=== PATIENT | male | born 1970 | race Caucasian/White ===

== ENCOUNTER → 2017-09-09 | Outpatient (CLI) | payer OTHER ==
[~2017-09-09] MED LIST: IBUP200C8 PO; TRAM50TA2 PO
[2017-09-09 09:47] LABS: BASOPHILS # (AUTO) 0.05 x10^3/uL (0-0.1); BASOPHILS % (AUTO) 1 % (0-1); EOSINOPHILS # (AUTO) 0.29 x10^3/uL (0-0.4); EOSINOPHILS % (AUTO) 5 % (1-7); LYMPHOCYTES % (AUTO) 35 % (22-44); MD NO; MEAN CORPUSCULAR HEMOGLOBIN 29.9 pg (27.5-34.5); MEAN CORPUSCULAR HGB CONC 33.8 g/dL (33.2-36.2); MEAN CORPUSCULAR VOLUME 88.3 fL (81-97); MEAN PLATELET VOLUME 7.4 fL (7.4-10.4); MONOCYTES # (AUTO) 0.64 x10^3/uL (0.2-0.8); MONOCYTES % (AUTO) 11 % (2-9); NEUTROPHILS # (AUTO) 2.97 x10^3/uL (1.8-6.8); NEUTROPHILS % (AUTO) 49 % (42-75); PLATELET COUNT 240 x10^3/uL (130-400); RED BLOOD COUNT 5.23 x10^6/uL (4.38-5.82); RED CELL DISTRIBUTION WIDTH 13.5 % (9.4-14.8)
[2017-09-09 09:58] LABS: ALBUMIN 3.6 g/dL (3.4-5.0); ANION GAP 6 mmol/L (5-15); CALCIUM 8.6 mg/dL (8.5-10.1); CHLORIDE 111 mmol/L (98-107)
[2017-09-09 10:01] LABS: ALANINE AMINOTRANSFERASE 38 U/L (12-78); ALKALINE PHOSPHATASE 60 U/L (45-117); BILIRUBIN,TOTAL 0.4 mg/dL (0.2-1.0); CREATININE 0.96 mg/dL (0.7-1.3); TOTAL PROTEIN 7.3 g/dL (6.4-8.2)
== END | disposition home or self-care (01) ==
LOC: STAR 08:35
PROVIDERS: ATTEND Colon & Rectal Surgery
DX: Z01.818 Encounter for other preprocedural examination (principal)
CPT/HCPCS: 36415; 80053; 85025; 93005

== ENCOUNTER 2017-09-15 08:07 | Inpatient (IN) | payer OTHER ==
[~2017-09-15] VITALS: Ht 188 cm; Wt 116.3 kg
[~2017-09-15 08:07] MED LIST changes: +BUPIVACAINE/PF-EPI 0.5% 1:200K ONE; +INDOCYANINE GREEN 25 MG VIAL ONE
[2017-09-15] MEDS ORDERED: LACTATED RINGERS 1,000 ML IV SCH ×2 (08:22→14:30)
[2017-09-15] MEDS ORDERED: ACETAMINOPHEN 500 MG TABLET PO ONE (08:30)
[2017-09-15] MEDS ORDERED: ONDANSETRON 2MG/ML, 2ML IVPush ONE (08:30)
[2017-09-15] MEDS ORDERED: SCOPOLAMINE PATCH, 1.5MG PATCH.TD72 TD ONE (08:30)
[2017-09-15] MEDS ORDERED: GABAPENTIN 300 MG CAPSULE PO ONE (08:30)
[2017-09-15] MEDS ORDERED: FAMOTIDINE 20 MG TABLET PO ONE (08:30)
[2017-09-15] MEDS ORDERED: FENTANYL PF 100 MCG/2ML ONE ×3 (08:32→12:00)
[2017-09-15] MEDS ORDERED: MIDAZOLAM 1 MG/ML, 2ML ONE (08:32)
[2017-09-15 08:36] VITALS: BP 124/86
[2017-09-15] MEDS ORDERED: METR500T8 PO (08:41)
[2017-09-15] MEDS ORDERED: NEOM500T PO (08:41)
[2017-09-15] MEDS ORDERED: BUPIVACAINE/PF-EPI 0.5% 1:200K INFIL ONE (10:05)
[2017-09-15] MEDS ORDERED: ONDANSETRON 2MG/ML, 2ML IV PRN ×2 (11:00→14:30)
[2017-09-15] MEDS ORDERED: HYDROcodone/APAP 7.5-325MG/15ML UDC PO PRN (11:00)
[2017-09-15] MEDS ORDERED: OXYcodone 5 MG/5 ML ORAL.SOL UDC PO PRN (11:00)
[2017-09-15] MEDS ORDERED: MEPERIDINE/PF 25MG/0.5ML IVPush PRN (11:00)
[2017-09-15] MEDS ORDERED: MIDAZOLAM 1 MG/ML, 2ML IV PRN (11:00)
[2017-09-15] MEDS ORDERED: ALBUTEROL/IPRATROPIUM 2.5MG/0.5MG, 3 ML NPPB PRN (11:00)
[2017-09-15] MEDS ORDERED: PROMETHAZINE 25 MG/ML, 1ML IV PRN (11:00)
[2017-09-15] MEDS ORDERED: HALOPERIDOL 5 MG/ML IV PRN (11:00)
[2017-09-15] MEDS ORDERED: EPHEDRINE 50 MG/ML, 1ML IVPush PRN (11:00)
[2017-09-15] MEDS ORDERED: ALBUTEROL SULFATE 2.5 MG/3 ML NPPB PRN (11:00)
[2017-09-15] MEDS ORDERED: LABETALOL 5MG/ML, 20ML IV PRN (11:00)
[2017-09-15] MEDS ORDERED: hydrALAzine 20 MG/ML, 1ML IV PRN (11:00)
[2017-09-15] MEDS ORDERED: OXYcodone 5 MG/5 ML ORAL.SOL UDC ONE (12:01)
[2017-09-15] MEDS: FENTANYL PF 100 MCG/2ML IV PRN ×2 (12:04→12:36)
[2017-09-15] MEDS ORDERED: HYDROmorphone 2 MG/ML, 1ML ONE (12:38)
[2017-09-15] MEDS: HYDROmorphone 2 MG/ML, 1ML IV PRN ×2 (12:40→13:01)
[2017-09-15 13:45] VITALS: BP 108/81
[2017-09-15] MEDS ORDERED: MORPHINE SULFATE 4 MG/ML, 1ML IVPush PRN (14:30)
[2017-09-15] MEDS ORDERED: LORazepam 1MG TABLET PO PRN (14:30)
[2017-09-15] MEDS ORDERED: DIPHENHYDRAMINE 50 MG/ML, 1ML IVPush PRN (14:30)
[2017-09-15] MEDS ORDERED: DIPHENHYDRAMINE 25 MG CAPSULE PO PRN (14:30)
[2017-09-15] MEDS ORDERED: CEFTRIAXONE 2 GM in DEXTROSE 5% 50 ML IV SCH (14:30)
[2017-09-15] MEDS ORDERED: DEXAMETHASONE 4 MG/ML, 1ML IVPush PRN (14:30)
[2017-09-15] MEDS ORDERED: LORazepam 2 MG/ML, 1ML IVPush PRN (14:30)
[2017-09-15] MEDS ORDERED: CALCIUM CARBONATE 500 MG TAB.CHEW PO PRN (14:30)
[2017-09-15] MEDS: ACETAMINOPHEN 325 MG TABLET PO SCH ×2 (14:56→20:12)
[2017-09-15] MEDS: CEFTRIAXONE 2 GM in SODIUM CHLORIDE 0.9% 50 ML IV SCH (14:57)
[2017-09-15] MEDS: OXYcodone IR 5MG TABLET PO PRN ×2 (15:29→20:12)
[2017-09-15] MEDS ORDERED: CEFOTETAN 2 GM ONE (15:56)
[2017-09-15] MEDS ORDERED: SUCCINYLCHOLINE 20 MG/ML, 10ML ONE (15:56)
[2017-09-15] MEDS ORDERED: ONDANSETRON 2MG/ML, 2ML ONE (15:56)
[2017-09-15] MEDS ORDERED: ROCURONIUM 10 MG/ML,10ML ONE (15:56)
[2017-09-15] MEDS ORDERED: PROPOFOL 10 MG/ML, 20ML ONE (15:56)
[2017-09-15] MEDS ORDERED: NEOSTIGMINE 1 MG/ML, 10ML ONE (15:56)
[2017-09-15] MEDS ORDERED: KETOROLAC 30 MG/1 ML ONE (15:56)
[2017-09-15] MEDS ORDERED: DEXAMETHASONE 4 MG/ML, 1ML ONE (15:56)
[2017-09-15] MEDS ORDERED: GLYCOPYRROLATE 0.2MG/1ML, 5ML ONE (15:56)
[2017-09-15] MEDS: KETOROLAC 30 MG/1 ML IVPush SCH (16:41)
[2017-09-15 18:48] VITALS: BP 114/63
[2017-09-16] MEDS: KETOROLAC 30 MG/1 ML IVPush SCH ×4 (00:15→16:54)
[2017-09-16 00:24] VITALS: BP 95/53
[2017-09-16] MEDS: OXYcodone IR 5MG TABLET PO PRN ×5 (03:41→19:45)
[2017-09-16] MEDS: ACETAMINOPHEN 325 MG TABLET PO SCH ×4 (03:41→19:45)
[2017-09-16 04:00] VITALS: BP 120/76
[2017-09-16 04:37] LABS: BASOPHILS # (AUTO) 0.04 x10^3/uL (0-0.1); BASOPHILS % (AUTO) 0 % (0-1); EOSINOPHILS % (AUTO) 0 % (1-7); LYMPHOCYTES # (AUTO) 1.73 x10^3/uL (1-3.4); LYMPHOCYTES % (AUTO) 14 % (22-44); MD NO; MEAN CORPUSCULAR HEMOGLOBIN 30.1 pg (27.5-34.5); MEAN CORPUSCULAR HGB CONC 33.8 g/dL (33.2-36.2); MEAN PLATELET VOLUME 7.6 fL (7.4-10.4); MONOCYTES # (AUTO) 0.92 x10^3/uL (0.2-0.8); MONOCYTES % (AUTO) 7 % (2-9); NEUTROPHILS # (AUTO) 9.85 x10^3/uL (1.8-6.8); NEUTROPHILS % (AUTO) 79 % (42-75); PLATELET COUNT 238 x10^3/uL (130-400); RED BLOOD COUNT 4.97 x10^6/uL (4.38-5.82); RED CELL DISTRIBUTION WIDTH 13.5 % (9.4-14.8)
[2017-09-16 04:49] LABS: ANION GAP 6 mmol/L (5-15); CALCIUM 8.7 mg/dL (8.5-10.1); CHLORIDE 107 mmol/L (98-107); CREATININE 1.09 mg/dL (0.7-1.3)
[2017-09-16 06:57] VITALS: BP 98/50
[2017-09-16] MEDS: ENOXAPARIN 40 MG/0.4 ML SQ SCH (09:14)
[2017-09-16 13:48] VITALS: BP 104/61
[2017-09-16] MEDS: CEFTRIAXONE 2 GM in SODIUM CHLORIDE 0.9% 50 ML IV SCH (14:28)
[2017-09-16] MEDS ORDERED: SODIUM CHLORIDE FLUSH 10ML SYR IVF SCH (21:00)
[2017-09-16 21:56] VITALS: BP 133/79
[2017-09-17] MEDS: OXYcodone IR 5MG TABLET PO PRN ×4 (00:05→08:33)
[2017-09-17] MEDS: KETOROLAC 30 MG/1 ML IVPush SCH ×2 (00:07→06:11)
[2017-09-17 02:58] VITALS: BP 137/81
[2017-09-17] MEDS: ACETAMINOPHEN 325 MG TABLET PO SCH ×2 (03:05→08:44)
[2017-09-17 05:30] LABS: BASOPHILS # (AUTO) 0.07 x10^3/uL (0-0.1); BASOPHILS % (AUTO) 1 % (0-1); EOSINOPHILS # (AUTO) 0.17 x10^3/uL (0-0.4); EOSINOPHILS % (AUTO) 2 % (1-7); LYMPHOCYTES # (AUTO) 1.68 x10^3/uL (1-3.4); LYMPHOCYTES % (AUTO) 16 % (22-44); MD NO; MEAN CORPUSCULAR HEMOGLOBIN 30.5 pg (27.5-34.5); MEAN CORPUSCULAR HGB CONC 33.8 g/dL (33.2-36.2); MEAN CORPUSCULAR VOLUME 90.2 fL (81-97); MEAN PLATELET VOLUME 7.8 fL (7.4-10.4); MONOCYTES # (AUTO) 0.55 x10^3/uL (0.2-0.8); MONOCYTES % (AUTO) 5 % (2-9); NEUTROPHILS # (AUTO) 7.79 x10^3/uL (1.8-6.8); NEUTROPHILS % (AUTO) 76 % (42-75); PLATELET COUNT 222 x10^3/uL (130-400); RED BLOOD COUNT 4.86 x10^6/uL (4.38-5.82); RED CELL DISTRIBUTION WIDTH 13.8 % (9.4-14.8)
[2017-09-17 05:49] LABS: CHLORIDE 105 mmol/L (98-107)
[2017-09-17 05:57] LABS: ANION GAP 7 mmol/L (5-15); CALCIUM 8.2 mg/dL (8.5-10.1); CREATININE 1.03 mg/dL (0.7-1.3)
[2017-09-17 07:21] VITALS: BP 116/80
[2017-09-17] MEDS: ENOXAPARIN 40 MG/0.4 ML SQ SCH (08:33)
[2017-09-17] MEDS ORDERED: AMOX1TAB64 PO (08:54)
[2017-09-17] MEDS ORDERED: OXYC-302 PO (08:54)
== END 2017-09-17 09:50 | disposition home or self-care (01) | DRG 331 ==
LOC: ORIP 08:07 → 4NOR 13:23
PROVIDERS: ADMIT Colon & Rectal Surgery; ATTEND Colon & Rectal Surgery
PROC: 0DBP4ZZ Excision of Rectum, Percutaneous Endoscopic Approach (ICD-10-PCS; 2017-09-15)
PROC: 8E0W4CZ Robotic Assisted Procedure of Trunk Region, Percutaneous Endoscopic Approach (ICD-10-PCS; 2017-09-15)
PROC: 0DTN4ZZ Resection of Sigmoid Colon, Percutaneous Endoscopic Approach (ICD-10-PCS; principal; 2017-09-15 10:00)
DX: K57.32 Diverticulitis of large intestine without perforation or abscess without bleeding (principal); G89.29 Other chronic pain
CPT/HCPCS: 36415; J3490; S0074; 80048; 83735; 85025; 86850; 86900; 88307; C1729; J0696; J1100; J1170; J1650; J1885; J2250; J2405; J2704; J2710; J3010; J0330

== ENCOUNTER → 2017-10-03 | Outpatient (CLI) | payer OTHER ==
[~2017-10-03] MED LIST changes: +AMOX1TAB64 PO; -BUPIVACAINE/PF-EPI 0.5% 1:200K ONE; -INDOCYANINE GREEN 25 MG VIAL ONE; +METR500T8 PO; +NEOM500T PO; +OMNIPAQUE 350 MG/ML, 100ML BOTTLE ONE; +OXYC-302 PO
== END | disposition home or self-care (01) ==
LOC: RAD 09:51
PROVIDERS: ATTEND Colon & Rectal Surgery
DX: K63.89 Other specified diseases of intestine (principal); K57.92 Diverticulitis of intestine, part unspecified, without perforation or abscess without bleeding
CPT/HCPCS: 74177; Q9967

== ENCOUNTER 2018-09-25 12:32 | Emergency (ER) | payer OTHER ==
[~2018-09-25] VITALS: Ht 188 cm; Wt 112.0 kg
[2018-09-25 14:48] VITALS: BP 131/79
== END 2018-09-25 15:20 | disposition home or self-care (01) ==
LOC: ED 15:14
DX: R20.2 Paresthesia of skin (principal)
CPT/HCPCS: 36415; 70450; 80048; 82040; 85025; 99284